=== PATIENT | male | born 1945 | race Caucasian/White ===

== ENCOUNTER → 2017-06-03 | Outpatient (CLI) | payer MEDICARE, OTHER ==
[~2017-06-03] MED LIST: ASPIRIN PO; CERTAGEN PO; COREG3.125 MG PO; EFFIENT10 MG PO; FISH OIL 1,001000 M1 PO; LIPITOR40 MG PO; LISINOPRIL2.5 MG PO; NITROGLYGERIN0.4 MG SL; NITROGYLCERIN SUBLINGUAL
--- NOTE | ~2017-06-03 | CR150 ---
[facility] A Service of [facility] & [facility] RADIOLOGY TEXT RESULTS PATIENT: GEREMIAS MCKEE LOCATION: [facility] : [birth year] UNIT #: [id number] AGE: [address]: Bonita Mckinney MD SEX: M ORDER DR: [id number] [facility] [address] [place], [place] [address] [id number] O MR#: [id number] Acc #: [id number] NAME: GEREMIAS MCKEE : 1945 SEX: M STUDY DATE/TIME: 06/03/2017 11:13 UNIT: [facility] ROOM: STUDY DESCRIPTION: CR Hip Min 2 Views Lt Attending Physician: Bonita Mckinney M.D. Referring Physician: Bonita Mckinney M.D. Ordering Physician: Bonita Mckinney M.D. Primary Care Physician: Bonita Mckinney M.D. MEDICAL IMAGING REPORT This report is preliminary unless electronic signature is present EXAM Left hip, 2 views, 06/03/2017. HISTORY Left hip pain for 1 year. No known injury. FINDINGS AP and oblique examination of the hip shows adequate mineralization of the bones and a normal anatomic relationship of the femoral head with the acetabulum. There are no hypertrophic changes, fractures, dislocation, or joint capsular distension. No radiopaque foreign body is present about the soft tissues of the hip. IMPRESSION Normal hip. Dictated by... Lorenzo Álvarez M.D. THIS IS AN ELECTRONICALLY VERIFIED REPORT Lorenzo Álvarez M.D. at 06/07/2017 8:02 AM DARLENE/rita TD: 06/05/2017 12:09 JOB #: [id number] MEDICAL IMAGING REPORT Page 1 of 1 COPY
--- NOTE | ~2017-06-03 | CR186 ---
[facility] A Service of [facility] & [facility] RADIOLOGY TEXT RESULTS PATIENT: GEREMIAS MCKEE LOCATION: [facility] : 45 UNIT #: [id number] AGE: [address]: Bonita Mckinney MD SEX: M ORDER DR: [id number] [facility] [address]. [place], [place] [address] [id number] O MR#: [id number] Acc #: [id number] NAME: GEREMIAS MCKEE : 1945 SEX: M STUDY DATE/TIME: 06/03/2017 11:13 UNIT: [facility] ROOM: STUDY DESCRIPTION: CR Lumbar Spine W Bend Min 6 V Attending Physician: Bonita Mckinney M.D. Referring Physician: Bonita Mckinney M.D. Ordering Physician: Bonita Mckinney M.D. Primary Care Physician: Bonita Mckinney M.D. MEDICAL IMAGING REPORT This report is preliminary unless electronic signature is present EXAM Lumbar spine plain film series, including bend views HISTORY Lumbar degenerative disc disease. Generalized osteoarthritis. Patient complains of low back pain for 1 year. No injury history. TECHNIQUE AP, lateral, both oblique views lumbosacral view and flexion and extension views of the lumbar spine are submitted for review. There are 7 films total. COMPARISON STUDIES No previous. FINDINGS With neutral positioning, lumbar lordosis is exaggerated. Minor anterior endplate spondylosis at L1-L2 with subtle loss of intervertebral disc height. There is facet degenerative change, asymmetrically worse on the left side at L5-S1. No pars defect is seen. No acute fracture or bone destruction. There is about 2 mm of anterolisthesis of L5 on S1 which appears to be degenerative in etiology on the neutral position films. With flexion, this is also about 2 mm and stable and with extension, the anterolisthesis of L5 on S1 reduces to normal. IMPRESSION 1. There is some facet degenerative change at L5-S1 with about 2 mm degenerative anterolisthesis of L5 on S1 with neutral positioning and flexion positioning. In extension, this reduces. Dictated by... Citlalli Rosales M.D. [facility]. [facility] A Service of [facility] & [facility] RADIOLOGY TEXT RESULTS PATIENT: GEREMIAS MCKEE LOCATION: [facility] #: [id number] : [birth year] UNIT #: [id number] AGE: [address]: Bonita Mckinney MD SEX: M ORDER DR: THIS IS AN ELECTRONICALLY VERIFIED REPORT Citlalli Rosales M.D. at 06/04/2017 1:35 PM SAC/pcl TD: 06/04/2017 00:40 JOB #: [id number] MEDICAL IMAGING REPORT Page 1 of 1 COPY
--- NOTE | ~2017-06-03 | CR138 ---
[facility] A Service of [facility] & [facility] RADIOLOGY TEXT RESULTS PATIENT: GEREMIAS MCKEE LOCATION: [facility] : 45 UNIT #: [id number] AGE: [address]: Bonita Mckinney MD SEX: M ORDER DR: [id number] [facility] [address] [place], [place] [address] [id number] O MR#: [id number] Acc #: [id number] NAME: GEREMIAS MCKEE : 1945 SEX: M STUDY DATE/TIME: 06/03/2017 11:12 UNIT: [facility] ROOM: STUDY DESCRIPTION: CR Hand 2 Views Lt Attending Physician: Bonita Mckinney M.D. Referring Physician: Bonita Mckinney M.D. Ordering Physician: Bonita Mckinney M.D. Primary Care Physician: Bonita Mckinney M.D. MEDICAL IMAGING REPORT This report is preliminary unless electronic signature is present EXAM Left hand, 3 views, 06/03/2017. HISTORY Left hand pain, left second and third digit pain, and swelling for 1 year, osteoarthritis left hand. No known injury. FINDINGS Three views of the left hand demonstrate no fracture. There are central erosions and osteophytic spurring involving the second and third distal interphalangeal joints with associated joint space narrowing. Joint space narrowing is also seen involving the first interphalangeal joint, as well as the fourth and fifth distal interphalangeal joints. Osteophytic spurring is seen about the first, second, and third distal interphalangeal joints. Findings suggest osteoarthritis. Slight lateral subluxation of the second and third distal phalanges relative to the middle phalanges. There is no soft tissue abnormality. IMPRESSION Degenerative changes as noted above. No acute abnormality. Dictated by... Lorenzo Álvarez M.D. THIS IS AN ELECTRONICALLY VERIFIED REPORT Lorenzo Álvarez M.D. at 06/07/2017 8:02 AM DARLENE/rita TD: 06/05/2017 12:03 JOB #: [id number] [facility] A Service of [facility] & [facility] RADIOLOGY TEXT RESULTS PATIENT: GEREMIAS MCKEE LOCATION: [facility] #: [id number] : 45 UNIT #: [id number] AGE: [address]: Bonita Mckinney MD SEX: M ORDER DR: MEDICAL IMAGING REPORT Page 1 of 1 COPY
== END | disposition home or self-care (01) ==
LOC: CRAD 11:01
DX: M51.36 Other intervertebral disc degeneration, lumbar region (principal); M43.16 Spondylolisthesis, lumbar region; M51.9 Unspecified thoracic, thoracolumbar and lumbosacral intervertebral disc disorder
CPT/HCPCS: 72114; 73120; 73502